=== PATIENT | male | born 1990 | race Asian ===

== ENCOUNTER 2017-08-01 18:09 | Emergency (ER) | payer OTHER ==
[~2017-08-01] VITALS: Ht 162.6 cm; Wt 70.3 kg
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
[2017-08-01] MEDS ORDERED: TDAP [DIPH/PERTUSSIS/TET] 0.5 ML VIAL IM ONE ×2 (18:30→18:41)
--- NOTE | 2017-08-01 18:41 | NUR ---
PATIENT TAKEN TO CT VIA STRETCHER.
--- NOTE | 2017-08-01 18:54 | NUR ---
PATIENT RETURNED FROM CT IN STABLE CONDITION.
--- NOTE | 2017-08-01 19:12 | NUR ---
REPORT GIVEN TO BRANT NDIAYE FOR [facility].
[2017-08-01] MEDS ORDERED: LIDOCAINE /MPF 1% VIAL 5 ML VIAL ONE (19:21)
[2017-08-01 20:45] VITALS: BP 143/95
== END 2017-08-01 20:45 | disposition home or self-care (01) ==
LOC: ER 18:12
DX: S01.112A Laceration without foreign body of left eyelid and periocular area, initial encounter (principal); S01.511A Laceration without foreign body of lip, initial encounter; V28.0XXA Motorcycle driver injured in noncollision transport accident in nontraffic accident, initial encounter; Y93.55 Activity, bike riding; Y92.828 Other wilderness area as the place of occurrence of the external cause; Y99.8 Other external cause status
CPT/HCPCS: 70450-TC; 70486-TC; 90715; A4606; A6403; J3490; Z7610

== ENCOUNTER 2017-08-03 09:52 | Emergency (ER) | payer OTHER ==
[~2017-08-03] VITALS: Ht 167.6 cm; Wt 74.8 kg
[2017-08-03 09:59] VITALS: BP 125/60
== END 2017-08-03 10:36 | disposition home or self-care (01) ==
LOC: ER 09:53
DX: S01.112D Laceration without foreign body of left eyelid and periocular area, subsequent encounter (principal)
CPT/HCPCS: A4606; Z7502; Z7610

== ENCOUNTER 2017-08-06 09:56 | Emergency (ER) | payer OTHER ==
[~2017-08-06] VITALS: Ht 162.6 cm; Wt 68.0 kg
[2017-08-06 10:16] VITALS: BP 131/86
== END 2017-08-06 10:45 | disposition home or self-care (01) ==
LOC: ER 09:57
DX: S01.112D Laceration without foreign body of left eyelid and periocular area, subsequent encounter (principal); S01.511D Laceration without foreign body of lip, subsequent encounter
CPT/HCPCS: 99283; A4606; Z7610